=== PATIENT | male | born 1965 | race Caucasian/White ===

== ENCOUNTER 2022-01-24 07:33 | Outpatient (CLI) | payer BC ==
[2022-01-24 20:27] LABS: SARS-CoV-2 PCR by NAA Not Detected (NotDetected)
== END 2022-01-24 07:34 | disposition home or self-care (01) ==
LOC: LABBT 07:33
PROVIDERS: ATTEND Specialist
DX: Z01.818 Encounter for other preprocedural examination (principal); C44.41 Basal cell carcinoma of skin of scalp and neck; Z20.822 Contact with and (suspected) exposure to COVID-19
CPT/HCPCS: 93005; 93010; U0003; U0005

== ENCOUNTER 2022-01-27 11:38 | Day surgery (SDC) | payer BC ==
[2022-01-25 10:27] VITALS: BMI 32.8
[2022-01-27] MEDS ORDERED: AFRIN NASAL MIST 15 ML BOT ONE (13:07)
[2022-01-27] MEDS ORDERED: Lidocaine 1% w/Epinephrine 1:100K 20 ML VIAL ONE (14:39)
[2022-01-27] MEDS ORDERED: Ondansetron ODT 4 MG TAB ONE (15:06)
[2022-01-27] MEDS ORDERED: Propofol 1,000 MG/100 ML VIAL IV ONE (15:23)
[2022-01-27] MEDS ORDERED: fentaNYL Citrate/PF 100 MCG/2 ML SYRINGE ONE (15:24)
[2022-01-27] MEDS ORDERED: Midazolam HCl 2 mg/2 ml Vial ONE (15:24)
[2022-01-27] MEDS ORDERED: Lidocaine 1% PF 5 ML VIAL ONE (15:26)
[2022-01-27] MEDS ORDERED: PROPOFOL 200 MG/20 ML VIAL ONE (15:26)
== END 2022-01-27 17:30 | disposition home or self-care (01) ==
LOC: SDC 11:38
PROVIDERS: ATTEND Specialist
PROC: 0HB0XZZ Excision of Scalp Skin, External Approach (ICD-10-PCS; principal; 2022-01-27)
DX: C44.41 Basal cell carcinoma of skin of scalp and neck (principal); I10 Essential (primary) hypertension; N40.0 Benign prostatic hyperplasia without lower urinary tract symptoms; E66.9 Obesity, unspecified; Z68.32 Body mass index [BMI] 32.0-32.9, adult; Z87.891 Personal history of nicotine dependence; Z79.82 Long term (current) use of aspirin; Z79.899 Other long term (current) drug therapy
CPT/HCPCS: 88305; J2250; J2704; Q0162